=== PATIENT | female | born 1970 | race Two or more races ===

== ENCOUNTER 2025-02-26 09:54 | Outpatient (CLI) | payer OTHER ==
[2025-02-27 10:07] LABS: Anti-Nuclear Antibody Direct Positive (Negative); Anti-dsDNA Antibody 1 IU/mL (0-9); Antiscleroderma-70 Antibody 0.3 AI (0.0-0.9); Sjogren's Anti-SS-A Antibody <0.2 AI (0.0-0.9); Sjogren's Anti-SS-B Antibody <0.2 AI (0.0-0.9)
== END 2025-02-26 17:00 | disposition home or self-care (01) ==
LOC: LAB 09:54
PROVIDERS: ATTEND Preventive Medicine Preventive Medicine/Occupational Environmental Medicine
DX: M79.641 Pain in right hand (principal)
CPT/HCPCS: 86160; 86225; 86235; 86376; 86431